=== PATIENT | male | born 1990 | race Two or more races ===

== ENCOUNTER 2019-02-24 09:43 | Emergency (ER) | payer OTHER ==
[~2019-02-24] VITALS: Ht 188 cm; Wt 96.1 kg
[2019-02-24 10:01] VITALS: BP 140/88
[2019-02-24] MEDS ORDERED: HYDROcodone/APAP 5/325 TABLET ONE (10:43)
[2019-02-24] MEDS ORDERED: ONDANSETRON ODT 4 MG ONE (10:43)
[2019-02-24] MEDS ORDERED: DIAZEPAM 5 MG TABLET ONE ×2 (10:43→12:52)
[2019-02-24] MEDS ORDERED: HYDROcodone/APAP 5/325 TABLET PO PRN (11:00)
[2019-02-24] MEDS ORDERED: DIAZEPAM 5 MG TABLET PO ONE ×2 (11:00→12:30)
[2019-02-24] MEDS ORDERED: ONDANSETRON ODT 4 MG PO ONE (11:00)
--- NOTE | 2019-02-24 12:15 | NUR ---
RAD CALLED TO INFORM STAFF PATIENT HAS BEEN C-SPINE CLEARED.
[2019-02-24] MEDS ORDERED: KETOROLAC 30 MG/1 ML IM ONE (12:30)
[2019-02-24] MEDS ORDERED: KETOROLAC 30 MG/1 ML ONE (12:52)
== END 2019-02-24 14:40 | disposition home or self-care (01) ==
LOC: ED 12:07
DX: S16.1XXA Strain of muscle, fascia and tendon at neck level, initial encounter (principal); S39.012A Strain of muscle, fascia and tendon of lower back, initial encounter; S00.93XA Contusion of unspecified part of head, initial encounter; S40.012A Contusion of left shoulder, initial encounter; V49.49XA Driver injured in collision with other motor vehicles in traffic accident, initial encounter; Y93.89 Activity, other specified; Y92.410 Unspecified street and highway as the place of occurrence of the external cause; Y99.8 Other external cause status
CPT/HCPCS: 70450; 72110; 72125; 73030; 96372; 99284; J1885; Q0162